=== PATIENT | male | born 1970 | race Caucasian/White ===

== ENCOUNTER 2019-11-14 08:19 | Outpatient (CLI) | payer OTHER, SELFPAY ==
--- NOTE | ~2019-11-14 | CT_ITS ---
EXAMINATION: CT pelvis wo con DATE: 11/14/2019 08:36 INDICATION: Right lower quadrant and right groin pain TECHNIQUE: Computed tomography (CT) of the pelvis was performed without intravenous contrast. The dos e-length product (DLP) was 301.88 mGy-cm. Automated exposure control and iterative reconstruction cole hnique were employed. COMPARISON: None FINDINGS: No hernia is identified. There are no dilated loops of bowel. An appendicolith is present i n the otherwise normal appendix. There is no pelvic inflammatory change. No pathologically enlarged p elvic lymph nodes are identified. There is diverticulosis of the sigmoid colon without evidence of di verticulitis. IMPRESSION: 1. No CT correlate for the patient's symptoms. Reviewed, dictated and finalized at location B.
== END 2019-11-14 08:20 ==
PROVIDERS: Visit Provider Surgery
DX: R10.31 Right lower quadrant pain (principal)
CPT/HCPCS: 72192

== ENCOUNTER 2021-06-12 12:35 | Emergency (ER) | payer OTHER, SELFPAY ==
--- NOTE | 2021-06-12 12:38 | ED.WOUNDLAC ---
HPI - Wound/Laceration General Chief Complaint: Wound/Laceration Stated Complaint: Cut Pinky Finger Lt Hand Time Seen by Provider: 06/12/21 12:38 Source: patient Mode of arrival: ambulatory Limitations: no limitations History of Present Illness HPI narrative: Mr. Pritchett is a 51-year-old male patient presenting to the clinic today with complaints of a cut to his left fifth finger that occurred approximately 30 minutes ago prior to arrival. He reports he was helping a friend cutting some sheet metal when the sheet metal had slipped and he tried to catch it and this pinched his left pinky finger. Tetanus is unknown. Bleeding is controlled. Has normal range of motion to the left fifth finger. Related Data Home Medications Medication Instructions Recorded Confirmed rimegepant [Nurtec ODT] 75 mg PO EVERY OTHER DAY 06/12/21 06/12/21 Allergies Allergy/AdvReac Type Severity Reaction Status Date / Time No Known Allergies Allergy Unknown Verified 06/12/21 12:58 Review of Systems Review of Systems: Pertinent positives per HPI. Patient denies any fever, chills, rash, headache, visual changes, dizziness, cough, runny nose, sore throat, shortness of breath, chest pain, palpitations, nausea, vomiting, diarrhea, constipation, abdominal pain, or any urinary issues. [facility] Past Medical History Medical History (Updated 06/12/21 @ 13:28 by Wade Merino APRN) Mitral valve prolapse Surgical History Surgical History H/O brain surgery 2014 History of hernia repair Laparoscopic bilateral inguinal hernia repair with mesh - 12/06/2012 Family History Family History Father Acute myocardial infarction, Onset Age: 67 Mother Family history of malignant melanoma, Onset Age: 68 Social History Social History Smoking packs per day: 2 Smoking cigarettes per day: 40.0 Years smoked: 30 Smoking pack-years: 60.00 Smoking status: Current every day smoker Tobacco type: cigarettes Alcohol intake: current Alcohol use details: rarely Comments At the time of my signature, I reviewed and agree with the nursing past medical, surgical, social, and family history. There is no relevant family history pertinent to the patient complaint. Exam Narrative: General: Well-developed, well nourished, in no apparent distress Head: Normocephalic, atraumatic. Cardio: Regular rate and rhythm, s1 and s2 normal, no murmur appreciated. Resp: Clear to auscultation bilaterally, no rhonchi, rales, wheezing or rubs. Integumentary: [place], warm, and dry, no deformity of the bone structure, 2 cm avulsion/flap laceration to the left fifth mid finger over the MIP joint. Flexion and extension of the finger is within normal limits against resistance. No sign of tendon rupture. Laceration repair performed and finger splint applied. Sensation and circulation within normal limits after procedure. Course Course Emergency Course: Portions of this record may have been created with voice recognition software. Level of Care: Express Care Visit Vital Signs Vital signs: Vital signs reviewed Procedures Laceration Laceration 1: Date: 06/12/21 Site: hand (Left fifth digit) Side (If applicable): left Size (cm): 2 Description: flap, irregular and contaminated Depth: simple, single layer Local Anesthetic: lidocaine 1% Amount of anesthesia used (mL): 3 Pre-repair: irrigated, irrigated extensively and minor debridement ====== Skin Level ====== Skin layer closed with: nylon Size (cm): 4-0 Number of sutures: 4 Technique: simple, interrupted ====== Subcutaneous Layer ====== ====== Muscle Layer ====== ====== Tendon Layer ====== D
[2021-06-12 12:47] VITALS: BP 114/71; PULSE 63; RESP 16; TEMP 35.9; O2SAT 99
[2021-06-12] MEDS: TETANUS,DIPHTHERIA,AC PERTUSSIS ADULT (0.5 ML) BOOSTRIX IM (13:27)
== END 2021-06-12 13:32 | disposition home or self-care (01) ==
PROVIDERS: Emergency Provider Nurse Practitioner Family
DX: S61.217A Laceration without foreign body of left little finger without damage to nail, initial encounter (principal); W45.8XXA Other foreign body or object entering through skin, initial encounter; Z23 Encounter for immunization; F17.210 Nicotine dependence, cigarettes, uncomplicated; I34.1 Nonrheumatic mitral (valve) prolapse
CPT/HCPCS: 12001; 90471; 90715; 99212; G0463

== ENCOUNTER 2025-01-05 14:12 | Emergency (ER) | payer OTHER, BC, SELFPAY ==
[2025-01-05 14:30] VITALS: BP 134/78; PULSE 73; RESP 20; TEMP 36.9; O2SAT 97
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
[2025-01-05] MEDS: SILVER SULFADIAZINE 1% CR 50 GM JAR (*BKC) 1 APPLIC TOPICAL (14:54)
== END 2025-01-05 15:00 | disposition home or self-care (01) ==
PROVIDERS: Emergency Provider Nurse Practitioner Family; PCP Family Medicine
DX: T65.891A Toxic effect of other specified substances, accidental (unintentional), initial encounter (principal); T25.621A Corrosion of second degree of right foot, initial encounter; F17.210 Nicotine dependence, cigarettes, uncomplicated; I34.1 Nonrheumatic mitral (valve) prolapse
CPT/HCPCS: 16020; 99213; A9270; G0463